=== PATIENT | female | born 1985 | race Hispanic/Latino ===

== ENCOUNTER 2019-11-06 16:23 | Inpatient (IN) | payer MEDICAID, OTHER ==
[~2019-11-06 16:23] MED LIST: Bupivacaine/Epinephrine 0.25% 30 ML VIAL ONE
[2019-11-06 16:34] VITALS: BMI 28.1
[2019-11-06 17:04] LABS: Amnisure Internal Control QC ACCEPTABLE (ACCEPTABLE); Amnisure Test RUPTURE DETECTED (No Rupture)
[2019-11-06] MEDS ORDERED: Ondansetron PF 4 MG/2 ML Vial IVP PRN (17:27)
[2019-11-06] MEDS ORDERED: Lidocaine 1% (PF) 30 ML VIAL SC PRN (17:27)
[2019-11-06] MEDS ORDERED: NS / Oxytocin 40 units/1000ml 1,000 ML IV PRN (17:27)
[2019-11-06] MEDS ORDERED: Promethazine HCl 25 MG/ML VIAL IM PRN (17:27)
[2019-11-06] MEDS ORDERED: hydrALAZINE 20 MG/ML VIAL SLOW IVP PRN (17:27)
[2019-11-06] MEDS ORDERED: HYDROcodone/Acetaminophen 5/325 mg Tablet PO PRN (17:27)
[2019-11-06] MEDS ORDERED: Ibuprofen 800 MG TAB PO PRN (17:27)
[2019-11-06] MEDS ORDERED: Lactated Ringer's 1,000 ML IV SCH (17:30)
[2019-11-06] MEDS: Lactated Ringer's 1,000 ML IV SCH (18:00)
[2019-11-06 18:21] LABS: Hemoglobin 12.7 g/dL (12.0-16.0); Mean Corpuscular HGB CONC 35.4 g/dL (32.0-36.0); Mean Corpuscular Hemoglobin 33.7 pg (27.0-31.0); Mean Corpuscular Volume 95.1 fL (78.0-98.0); Mean Platelet Volume 6.8 fL (7.4-10.4); Platelet Count 278 thou/uL (130-400); RBC Distribution Width 12.2 % (11.5-14.5); Red Blood Cell (RBC) Count 3.78 mill/uL (4.20-5.40); White Blood Cell (WBC) Count 12.7 thou/uL (4.8-10.8)
[2019-11-06 19:00] LABS: Syphilis Antibody Nonreactive (Nonreactive); Syphilis Antibody Index 0.07 S/CO (<1.00 Non-Reactive)
[2019-11-06 19:01] LABS: HBSAg Index 0.22 S/CO (0-0.99); Hep B Surf Ag Non-Reactive S/CO (NonReactive)
[2019-11-06] MEDS: Misoprostol 100 MCG TAB PO SCH ×2 (19:29→23:54)
[2019-11-07] MEDS: Butorphanol Tartrate 1 MG/ML VIAL SLOW IVP PRN ×2 (01:27→03:49)
[2019-11-07] MEDS ORDERED: Fentanyl 4 mcg/Bup 0.1% Cadd 100 ML ONE ×2 (04:47→13:26)
[2019-11-07] MEDS ORDERED: Ondansetron PF 4 MG/2 ML Vial IVP PRN ×2 (05:22→18:36)
[2019-11-07] MEDS ORDERED: Lactated Ringer's 500 ML IV PRN (05:22)
[2019-11-07] MEDS ORDERED: Acetaminophen 325 MG TAB PO PRN (05:22)
[2019-11-07] MEDS ORDERED: diphenhydrAMINE 50 MG/ML VIAL IVP PRN (05:22)
[2019-11-07] MEDS ORDERED: EPHEDRINE 25 MG/5 ML SYRINGE SLOW IVP PRN (05:22)
[2019-11-07] MEDS ORDERED: Naloxone HCl 0.4 mg/ml Vial IVP PRN ×2 (05:22)
[2019-11-07] MEDS ORDERED: Promethazine HCl 25 MG/ML VIAL IM PRN ×2 (05:22→18:36)
[2019-11-07] MEDS ORDERED: Fentanyl 4 mcg/Bupivacaine 0.1% Cassette 100 ML EPIDURAL SCH (05:30)
[2019-11-07] MEDS ORDERED: Communication Order-Pharmacy FS SCH (05:30)
[2019-11-07] MEDS ORDERED: NS w/ Oxytocin 10 units 500 ML IVPB SCH (05:45)
[2019-11-07] MEDS: Lactated Ringer's 1,000 ML IV SCH ×3 (06:51→21:42)
[2019-11-07] MEDS ORDERED: CEFAZOLIN 2 GM in Premix Bag 1 BAG IVPB SCH (10:00)
[2019-11-07] MEDS ORDERED: Terbutaline Sulfate 1 MG/ML VIAL ONE (15:29)
[2019-11-07] MEDS ORDERED: Terbutaline Sulfate 1 MG/ML VIAL SC SCH (15:45)
[2019-11-07] MEDS ORDERED: Misoprostol 200 MCG TAB ONE (16:30)
[2019-11-07] MEDS ORDERED: Methylergonovine 0.2 MG/ML VIAL ONE (16:52)
[2019-11-07 16:55] LABS: Actual Bicarbonate (HCO3v) 18 mEq/L (22-28); Base Excess -6.3 mEq/L (-2.0 to +3.0); pH (Cord, venous) 7.35 (7.32-7.43)
[2019-11-07 16:58] LABS: Actual Bicarbonate (HCO3a) 20.3 mEq/L (22-28); Base Excess (BEa) -9.3 mEq/L (-2.0 to +3.0)
[2019-11-07] MEDS ORDERED: Zolpidem Tartrate 5 MG TAB PO PRN (18:36)
[2019-11-07] MEDS ORDERED: Adacel (T-DAP) 0.5 ML SYRINGE IM ONE (18:36)
[2019-11-07] MEDS ORDERED: NS / Oxytocin 40 units/1000ml 1,000 ML IV SCH (18:36)
[2019-11-07] MEDS ORDERED: Varicella virus, LIVE 0.5 ML VIAL SC ONE (18:36)
[2019-11-07] MEDS ORDERED: Preparation H Ointment 28 GM TUBE PR PRN (18:36)
[2019-11-07] MEDS ORDERED: Measles/Mumps/Rubella 10 MCG/0.5 ML VIAL SC ONE (18:36)
[2019-11-07] MEDS ORDERED: hydrALAZINE 20 MG/ML VIAL SLOW IVP PRN (18:36)
[2019-11-07] MEDS ORDERED: Methylergonovine 0.2 MG/ML VIAL IM PRN (18:36)
[2019-11-07] MEDS ORDERED: Lanolin Ointment 7 GM TUBE TOP PRN (18:36)
[2019-11-07] MEDS ORDERED: Misoprostol 200 MCG TAB VAG PRN (18:36)
[2019-11-07] MEDS ORDERED: HYDROcodone/Acetaminophen 5/325 mg Tablet PO PRN (18:36)
[2019-11-07] MEDS ORDERED: diphenhydrAMINE 25 MG CAP PO PRN (18:36)
[2019-11-07] MEDS ORDERED: Bisacodyl 10 MG SUPP PR PRN (18:36)
[2019-11-07] MEDS ORDERED: Milk Of Magnesia 30 ML UDCUP PO PRN (18:36)
[2019-11-07] MEDS ORDERED: Benzocaine-Menthol 82.5 ML CAN TOP PRN (18:36)
[2019-11-07] MEDS ORDERED: NS / Oxytocin 40 units/1000ml 1,000 ML ONE (18:38)
[2019-11-07] MEDS: Docusate Calcium (SURFAK) 240 MG CAP PO SCH (20:26)
[2019-11-07] MEDS: Ibuprofen 800 MG TAB PO SCH ×2 (20:26→23:19)
[2019-11-07] MEDS: HYDROcodone/Acetaminophen 5/325 mg Tablet PO PRN (21:12)
[2019-11-07] MEDS: Ferrous Sulfate 325 MG TAB PO SCH (21:39)
[2019-11-07] MEDS: Misoprostol 100 MCG TAB PO SCH (21:43)
[2019-11-08] MEDS: HYDROcodone/Acetaminophen 5/325 mg Tablet PO PRN ×6 (02:39→23:30)
[2019-11-08] MEDS: Ibuprofen 800 MG TAB PO SCH ×3 (05:58→22:42)
[2019-11-08 07:12] LABS: Hemoglobin 10.7 g/dL (12.0-16.0); Mean Corpuscular HGB CONC 34.5 g/dL (32.0-36.0); Mean Corpuscular Hemoglobin 33.3 pg (27.0-31.0); Mean Corpuscular Volume 96.7 fL (78.0-98.0); Mean Platelet Volume 6.7 fL (7.4-10.4); Platelet Count 236 thou/uL (130-400); RBC Distribution Width 12.1 % (11.5-14.5); Red Blood Cell (RBC) Count 3.21 mill/uL (4.20-5.40); White Blood Cell (WBC) Count 15.7 thou/uL (4.8-10.8)
[2019-11-08] MEDS: Ferrous Sulfate 325 MG TAB PO SCH ×2 (08:15→16:43)
[2019-11-08] MEDS: Prenatal Vitamin 1 TAB PO SCH (08:18)
[2019-11-08] MEDS: Docusate Calcium (SURFAK) 240 MG CAP PO SCH ×2 (08:18→22:42)
--- NOTE | 2019-11-08 21:13 | PDOC.PP ---
Post Progress Note Post Day #: 1 PO intake tolerated: yes Flatus: yes Ambulation: yes Vital Signs (12 hours) Temp Pulse Resp BP 11/08/19 17:05 98.0 F 77 20 116/71 11/08/19 11:21 97.8 F 74 20 104/66 Weight Weight 154 lb Result Diagrams: 11/08/19 06:46 Additional Labs: Post Labs Blood Type A POSITIVE 11/06/19 19:15 Hep Bs Antigen Non-Reactive S/CO (NonReactive) 11/06/19 18:12 - Assessment/Plan Telephone rounds only. Patient is breast feeding baby in NICU. she is tolerating regular diet, ambulating, and overall doing very well. Baby expected to come to the patients room tomorrow. We will plan to DC patient to boarding status tomorrow. F/U in clinic will be planned tomorrow.
[2019-11-09 01:55] VITALS: TEMP 98.1
[2019-11-09] MEDS: HYDROcodone/Acetaminophen 5/325 mg Tablet PO PRN ×4 (03:46→16:01)
[2019-11-09] MEDS: Ibuprofen 800 MG TAB PO SCH ×2 (05:37→16:07)
[2019-11-09 08:09] VITALS: BP 119/77
[2019-11-09] MEDS: Prenatal Vitamin 1 TAB PO SCH (10:08)
[2019-11-09] MEDS: Ferrous Sulfate 325 MG TAB PO SCH ×2 (10:09→18:21)
[2019-11-09] MEDS: Docusate Calcium (SURFAK) 240 MG CAP PO SCH (10:09)
== END 2019-11-09 18:28 | disposition home or self-care (01) | DRG 807 ==
LOC: L&D/OP 16:23 → L&D 11-07 01:37 → 3SW 11-07 21:25
PROVIDERS: ADMIT Obstetrics & Gynecology; ATTEND Obstetrics & Gynecology
PROC: 10E0XZZ Delivery of Products of Conception, External Approach (ICD-10-PCS; principal; 2019-11-07)
DX: O70.1 Second degree perineal laceration during delivery (principal); Z37.0 Single live birth; Z3A.37 37 weeks gestation of pregnancy
CPT/HCPCS: 36415; 51702; 82805; 84112; 85027; 86780; 86850; 86900; 86901; 87340; 99285; J0595; J0690; J2210; J2590; J3105